=== PATIENT | female | born 2000 | race Caucasian/White ===

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

== ENCOUNTER → 2020-11-06 | Outpatient (CLI) | payer MEDICAID, BC ==
[2020-11-06 15:11] LABS: Basophils # (A) 0.06 X 10*3/uL (0.00-0.10); Basophils % (A) 0.7 %; Eosinophils # (A) 0.17 X 10*3/uL (0.04-0.35); Eosinophils % (A) 1.9 %; HCT 38.7 % (37.2-46.3); HGB 12.5 g/dL (12.0-15.0); Lymphocytes # (A) 2.13 X 10*3/uL (0.90-5.00); Lymphocytes % (A) 23.6 %; MCH 29.1 pg (27.0-32.0); MCHC 32.3 g/dL (32.0-37.0); Mean Platelet Volume 10.5 fL (9.5-12.2); Monocytes # (A) 0.74 X 10*3/uL (0.20-1.00); Monocytes % (A) 8.2 %; Neutrophils # (A) 5.91 X 10*3/uL (1.80-7.70); Neutrophils % (A) 65.4 %; Platelet Count 393 X 10*3/uL (140-440); RDW 11.8 % (11.5-14.5); WBC 9.03 X 10*3/uL (4.50-10.00)
[2020-11-07 06:35] LABS: African American GFR (CKD) 122.1 (60.0-200.0); Albumin 4.4 g/dL (3.80-4.90); Albumin/Globulin Ratio 1.76 (1.60-3.17); Anion Gap 11.3 mmol/L (4.00-12.00); Calcium 9.7 mg/dL (8.7-10.3); Carbon Dioxide 22.7 mmol/L (21.6-31.8); Chol/HDL Ratio 3.38; Globulin 2.5 g/dL (1.6-3.3); Non-African American GFR(CKD) 105.4 (60.0-200.0); Potassium 4.4 mmol/L (3.5-5.5); Total Bilirubin 0.2 mg/dL (0.3-1.2); Total Protein 6.9 g/dL (6.2-8.2)
[2020-11-07 06:43] LABS: Luteinizing Hormone 9.3 mIU/mL; Prolactin 10.7 ng/mL (2.8-29.2)
[2020-11-07 06:44] LABS: Estradiol 69.6 pg/mL
== END | disposition home or self-care (01) ==
LOC: LABWHC1 07:41
PROVIDERS: ATTEND Family Medicine
DX: Z01.419 Encounter for gynecological examination (general) (routine) without abnormal findings (principal); Z13.228 Encounter for screening for other metabolic disorders; N91.5 Oligomenorrhea, unspecified; G90.3 Multi-system degeneration of the autonomic nervous system; E53.8 Deficiency of other specified B group vitamins
CPT/HCPCS: 36415; 80053; 80061; 82607; 82670; 83001; 83002; 84144; 84146; 84443; 85025

== ENCOUNTER → 2021-01-19 | Outpatient (CLI) | payer MEDICAID, BC ==
--- NOTE | 2021-01-19 13:56 | XR ---
EXAMINATION TYPE: XR Hip Complete RT DATE OF EXAM: 01/19/2021 COMPARISON: NONE HISTORY: Pain TECHNIQUE: 2 views submitted FINDINGS: There is no evidence of erosive change or acute fracture. Joint spaces preserved. SI joint patent. IMPRESSION: 1. No evidence of acute fracture or dislocation. If symptoms persist consider MRI.
--- NOTE | 2021-01-19 13:57 | XR ---
EXAM TYPE: LUMBAR SPINE X RAY SERIES COMPARISON: NONE HISTORY: Pain TECHNIQUE: 4 views are submitted. FINDINGS: Alignment is anatomic. The pedicles are intact. The transverse processes are intact. There is no s pondylolysis or spondylolisthesis. 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 IMPRESSION: 1. No acute process. If there is concern for disc herniation correlate with MRI.
== END | disposition home or self-care (01) ==
LOC: RADXRMAIN 13:26
PROVIDERS: ATTEND Nurse Practitioner Family
DX: M25.551 Pain in right hip (principal); M54.5 Low back pain
CPT/HCPCS: 72100; 73502